=== PATIENT | male | born 2000 | race African-American/Black ===

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

== ENCOUNTER 2020-04-13 16:16 | Emergency (ER) | payer BC, SELFPAY ==
--- NOTE | ~2020-04-13 | XR_ITS ---
EXAMINATION: XR knee RT 3V EXAM DATE: 04/13/2020 16:37 INDICATION: RT knee pain. 4x months, no injury. Pain around patella. TECHNIQUE: Three projections of the right knee. There is no prior study for comparison. FINDINGS: No evidence osteochondral defect or joint body in the right knee joint. There are no acut e fractures or dislocations identified. There is no subcutaneous gas. The soft tissue is unremarkab le. There are no radiopaque foreign bodies. No joint effusion. IMPRESSION: 1. Unremarkable XR knee RT 3V exam. Reviewed, dictated and finalized at location A. ST
--- NOTE | 2020-04-13 16:22 | ED.GENADULT ---
HPI - General Adult General Chief complaint: Extremity Injury, Lower Stated complaint: Right Knee Pain Time Seen by Provider: 04/13/20 16:22 Source: patient Mode of arrival: ambulatory Limitations: no limitations History of Present Illness HPI narrative: 19-year-old male patient presents to the [facility] with complaints of right knee pain for the past 2 to 3 months. 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 Patient states that he noticed some pain during some leg work-up out a couple months ago. Patient states he has stopped doing leg workouts for couple of week now but continues to have some popping and clicking of the right knee especially when extending the right knee and going up and down stairs. Patient denies taking thing for pain. Patient states he has worn his knee brace that he has at home intermittently for the pain at times. Patient denies any numbness or tingling down the leg. Patient denies any swelling, warmth or redness to the knee. Related Data Allergies Allergy/AdvReac Type Severity Reaction Status Date / Time No Known Allergies Allergy Verified 10/04/19 17:19 Review of Systems Review of Systems: Narrative: CONSTITUTIONAL: Denies fever, chills, or sweats. EYES: Denies visual changes, redness, or discharge. ENT: Denies rhinorrhea, congestion, sore throat, or otalgia. CARDIOVASCULAR: Denies chest pain, palpitations, or edema. RESPIRATORY: Denies cough or dyspnea. GASTROINTESTINAL: Denies abdominal pain, nausea, vomiting, or diarrhea. GENITOURINARY: Denies dysuria or hematuria. SKIN: Denies rash or itching. MUSCULOSKELETAL: Denies back pain, joint pain, or myalgia. Positive right knee pain NEUROLOGIC: Denies headache, numbness, or weakness. PSYCHIATRIC: Denies anxiety or depression. [facility] Past Medical History Medical History (Updated 04/13/20 @ 17:08 by GARTH Howell) ADHD Surgical History Surgical History (Updated 04/13/20 @ 17:08 by GARTH Howell) H/O knee surgery History of orthopedic surgery Bilateral thumbs Comments At the time of my signature I agree with nursing past medical history, surgical, social, and family history. There is no relevant family history pertinent to the presenting complaint. Exam Narrative: Exam Narrative: GENERAL: Well-appearing, well-nourished, and in no acute distress. HEAD: Normocephalic, atraumatic. EYES: PERRLA and EOMI. ENT: Nares clear, no rhinorrhea or epistaxis. Mucous membranes moist. NECK: Supple. No lymphadenopathy CHEST: Clear to auscultation. No respiratory distress. HEART: Regular rate and rhythm. No murmur heard. Normal peripheral pulses. ABDOMEN: Soft, nontender, nondistended, normal active bowel sounds. EXTREMITIES: Patient is able to bear weight and ambulate without pain. No surface trauma, STS, or obvious effusion. No overlying erythema or warmth. The L knee is without obvious asymmetry or deformity when compared to the R knee. Patient is able to do deep knee bend with symmetry, fully extend knee but patient does have popping and feels that the patella is not stable with this motion, normal internal and external rotation. No tendernss to palpation of the patella, no effusion or ballottement. No tenderness over the infrapatellar tendon. No tenderness over the medial or lateral joint lone ot the medial or lateral tibial plateaus. no tenderness over the proximal fibular head. no tenderness, fullness, or mass of the popliteal fossa. No quadriceps tenderness. No laxity of the ACL, PCL, MCL, or LCL. No collateral ligament laxity to valgus or vargus stress. Negative ney/drawer sign. Negative Kaylee. Negative Apley compression and/or distraction. Distal motor and neurovascular status intact. SKIN: Warm, dry, no rash. NEURO: No focal deficits. Alert and oriented x3. Course Reevaluation(s) Reevaluation #1: Reevaluated patient a
[2020-04-13 16:37] VITALS: BP 144/67; PULSE 63; RESP 18; TEMP 36.4; O2SAT 99
== END 2020-04-13 17:00 | disposition home or self-care (01) ==
PROVIDERS: Emergency Provider Nurse Practitioner Family
DX: M23.91 Unspecified internal derangement of right knee (principal)
CPT/HCPCS: 73562; 99213; G0463

== ENCOUNTER 2020-06-21 10:54 | Emergency (ER) | payer BC, SELFPAY ==
[2020-06-21 11:00] VITALS: BP 122/92; PULSE 71; RESP 16; TEMP 37.1; O2SAT 98
--- NOTE | 2020-06-21 11:06 | ED.GENADULT ---
HPI - General Adult General Chief complaint: Upper Respiratory Infection Stated complaint: sore throat Time Seen by Provider: 06/21/20 11:06 Source: patient Mode of arrival: ambulatory Limitations: no limitations History of Present Illness HPI narrative: 19-year-old male patient presents to the [facility] with complaints of sore throat for the past 4 days. Patient states is also had a little bit of congestion for the past couple of days as well as some ear pain. Denies take anything for his symptoms besides ibuprofen. Patient denies any fever, body aches or chills. Denies any cough, chest pain or shortness of breath. Denies any abdominal pain, nausea, vomiting or diarrhea. Patient denies being around anybody with Covid that he is aware of. Related Data Allergies Allergy/AdvReac Type Severity Reaction Status Date / Time No Known Allergies Allergy Verified 10/04/19 17:19 Review of Systems Review of Systems: Narrative: CONSTITUTIONAL: Denies fever, chills, or sweats. EYES: Denies visual changes, redness, or discharge. ENT: Denies rhinorrhea, positive congestion, positive sore throat, positive bilateral otalgia. CARDIOVASCULAR: Denies chest pain, palpitations, or edema. RESPIRATORY: Denies cough or dyspnea. GASTROINTESTINAL: Denies abdominal pain, nausea, vomiting, or diarrhea. GENITOURINARY: Denies dysuria or hematuria. SKIN: Denies rash or itching. MUSCULOSKELETAL: Denies back pain, joint pain, or myalgia. NEUROLOGIC: Denies headache, numbness, or weakness. PSYCHIATRIC: Denies anxiety or depression. PMFSH Past Medical History Medical History (Updated 06/21/20 @ 11:27 by GARTH Howell) ADHD Surgical History Surgical History (Updated 04/13/20 @ 17:08 by GARTH Howell) H/O knee surgery History of orthopedic surgery Bilateral thumbs Social History Social History Gender identity (if verbalized by the patient): Male Exam Narrative: Exam Narrative: GENERAL: Well-appearing, well-nourished, and in no acute distress. HEAD: Normocephalic, atraumatic. EYES: PERRLA and EOMI. ENT: Nares with erythema and edema noted bilaterally, no rhinorrhea or epistaxis. Mucous membranes moist. Posterior pharynx with no erythema, tonsil enlargement, exudates or lesions present. Bilateral TMs are slightly erythemic but no foreign bodies to the canal. NECK: Supple. No lymphadenopathy CHEST: Clear to auscultation. No respiratory distress. Patient able talk clear complete sentences. No tripoding noted. HEART: Regular rate and rhythm. No murmur heard. Normal peripheral pulses. ABDOMEN: Soft, nontender, nondistended, normal active bowel sounds. EXTREMITIES: Normal range of motion. No edema. SKIN: Warm, dry, no rash. NEURO: No focal deficits. Alert and oriented x3. Course Reevaluation(s) Reevaluation #1: Reevaluated patient and notified him that his strep and Covid test are both negative today. Discussed with him that we will send the strep test off to the lab for culture and if it does come back positive in the next couple of days we will call him and place him on antibiotics at that time. Discussed with patient we did do a rapid Covid test which was negative today however given his symptoms we will also do a PCR test and send it to the lab for confirmation. Discussed with patient that I do encourage him to stay off of work and isolate while we are waiting for the PCR test. Discussed with patient I will discharge him home with an antihistamine and a nasal steroid to help with his symptoms he can also do ibuprofen, Tylenol, warm salt water gargles and cough drops to help with the symptoms. Patient verbalized understanding denies any other questions or concerns at this time. Date: 06/21/20 Time: 11:32 Vital Signs Vital signs: Vital Signs Temperature 37.1 C 06/21/20 11:00 Pulse Rate 71 06/21/20 11:00 Respiratory Rate 16 06/21/20 11:00 Blood Pressure 122/92
--- NOTE | 2020-06-21 11:09 | ED.GENADULT ---
HPI - General Adult General Chief complaint: Upper Respiratory Infection Stated complaint: sore throat Time Seen by Provider: 06/21/20 11:06 Source: patient Mode of arrival: ambulatory Limitations: no limitations Related Data Allergies Allergy/AdvReac Type Severity Reaction Status Date / Time No Known Allergies Allergy Verified 10/04/19 17:19 [facility] Past Medical History Medical History (Updated 04/14/20 @ 00:00 by Frank New) ADHD Surgical History Surgical History (Updated 04/13/20 @ 17:08 by GARTH Howell) H/O knee surgery History of orthopedic surgery Bilateral thumbs Course Vital Signs Vital signs: Vital Signs Temperature 37.1 C 06/21/20 11:00 Pulse Rate 71 06/21/20 11:00 Respiratory Rate 16 06/21/20 11:00 Blood Pressure 122/92 H 06/21/20 11:00 Pulse Oximetry 98 06/21/20 11:00 Temperature 37.1 C 06/21/20 11:00 Pulse Rate 71 06/21/20 11:00 Respiratory Rate 16 06/21/20 11:00 Blood Pressure 122/92 H 06/21/20 11:00 Pulse Oximetry 98 06/21/20 11:00 Medical Decision Making Vital Signs Vital Signs: Vital Signs Temperature 37.1 C 06/21/20 11:00 Pulse Rate 71 06/21/20 11:00 Respiratory Rate 16 06/21/20 11:00 Blood Pressure 122/92 H 06/21/20 11:00 Pulse Oximetry 98 06/21/20 11:00 Temperature 37.1 C 06/21/20 11:00 Pulse Rate 71 06/21/20 11:00 Respiratory Rate 16 06/21/20 11:00 Blood Pressure 122/92 H 06/21/20 11:00 Pulse Oximetry 98 06/21/20 11:00 Discharge Plan Discharge Prescriptions: No Action naproxen 500 mg tablet 500 mg PO BID PRN (Reason: pain) Qty: 30 RF: 0 cyclobenzaprine 10 mg tablet 10 mg PO TID PRN (Reason: muscle spasm) Qty: 10 RF: 0
[2020-06-22 20:38] LABS: SARS-CoV-2 RNA PCR Negative
== END 2020-06-21 11:45 | disposition home or self-care (01) ==
PROVIDERS: Emergency Provider Nurse Practitioner Family
DX: J06.9 Acute upper respiratory infection, unspecified (principal); J02.9 Acute pharyngitis, unspecified; Z20.822 Contact with and (suspected) exposure to COVID-19
CPT/HCPCS: 87081; 87426; 87880; 99213; C9803; G0463; U0003; U0005

== ENCOUNTER 2021-03-29 16:31 | Emergency (ER) | payer BC, SELFPAY ==
--- NOTE | 2021-03-29 16:39 | ED_ITS ---
HPI - Female Genitourinary General Chief complaint: Urogenital-Male Stated complaint: STD Time Seen by Provider: 03/29/21 16:39 Source: patient, RN notes reviewed and old records reviewed Mode of arrival: ambulatory Limitations: no limitations History of Present Illness HPI Narrative: 20-year-old male presents to the [facility] with complaints of urinary pain and penile discharge for the last 3 weeks. Denies abdominal pain or chest pain. Related Data Allergies Allergy/AdvReac Type Severity Reaction Status Date / Time No Known Allergies Allergy Verified 06/21/20 15:32 [facility] Past Medical History Medical History (Updated 06/22/20 @ 00:00 by Frank New) ADHD Surgical History Surgical History (Updated 04/13/20 @ 17:08 by GARTH Howell) H/O knee surgery History of orthopedic surgery Bilateral thumbs Social History Social History Gender identity (if verbalized by the patient): Male Course Vital Signs Vital signs: Vital Signs Temperature 97.9 F 03/29/21 16:43 Pulse Rate 66 03/29/21 16:43 Respiratory Rate 16 03/29/21 16:43 Blood Pressure 132/69 03/29/21 16:43 Pulse Oximetry 100 03/29/21 16:43 Temperature 97.9 F 03/29/21 16:43 Pulse Rate 66 03/29/21 16:43 Respiratory Rate 16 03/29/21 16:43 Blood Pressure 132/69 03/29/21 16:43 Pulse Oximetry 100 03/29/21 16:43 Discharge Plan Discharge Follow-up/Referrals: PHYSICIAN NOT ON STAFF,NONSTAFF [Primary Care Provider] -
[2021-03-29 16:43] VITALS: BP 132/69; PULSE 66; RESP 16; TEMP 36.6; O2SAT 100
--- NOTE | 2021-03-29 16:51 | ED.MALEGU ---
HPI - Male Genitourinary General Chief complaint: Urogenital-Male Stated complaint: STD Time Seen by Provider: 03/29/21 16:39 Source: patient and RN notes reviewed Mode of arrival: ambulatory Limitations: no limitations History of Present Illness HPI Narrative: 20-year-old male presents to the [facility] with complaints of burning with urination and penile discharge for the last 2 to 3 weeks. Denies testicular pain. Has had unprotected sex Related Data Allergies Allergy/AdvReac Type Severity Reaction Status Date / Time No Known Allergies Allergy Verified 06/21/20 15:32 Review of Systems Review of Systems: All systems reviewed & are unremarkable except as noted in HPI and below Constitutional: Constitutional: Reports no additional constitutional complaints, Denies body ache(s) and Denies chills Eyes: Eyes: Reports no additional eye complaints ENT: Reports system reviewed and no additional complaints, except as documented Cardiovascular: Cardiovascular: Reports no additional cardiovascular complaints Respiratory: Respiratory: Reports no additional respiratory complaints Gastrointestinal: Gastrointestinal: Reports no additional gastrointestinal complaints and Denies abdominal pain Genitourinary: Genitourinary: Reports as per HPI, Reports genital pain, Reports dysuria, Reports penile discharge, Denies scrotal swelling, Denies testicular pain, Denies urinary frequency, Denies urinary incontinence and Denies urinary urgency Musculoskeletal: Musculoskeletal: Reports no additional musculoskeletal complaints Integumentary/Breasts: Skin/Breast: Reports system reviewed and no additional complaints, except as docu Neurologic: Reports system reviewed and no additional complaints, except as documented Psychiatric: Psychiatric: Reports no additional psychiatric complaints Allergic/Immunologic: Allergic/Immunologic: Reports no additional allergic/immunologic complaints [facility] Past Medical History Medical History (Updated 03/29/21 @ 16:58 by Eve Penaloza) ADHD Surgical History Surgical History H/O knee surgery History of orthopedic surgery Bilateral thumbs Social History Social History Gender identity (if verbalized by the patient): Male Comments At the time of my signature, I reviewed and agree with the nursing past medical, surgical, social, and family history. There is no relevant family history pertinent to the patient complaint. Exam Const: General: cooperative, healthy appearing, comfortable, no acute distress, well developed, alert, awake and anxious Nutritional Appearance: average body habitus Orientation/consciousness: oriented to person Limitations: no limitations HENMT: Head: normal to inspection Face and sinus: normal facial exam Mouth: Yes Normal oral and palatal mucosa present Eyes: General: appearance normal, both eyes and all related structures Eyelids: eyelids normal Conjunctivae: conjunctivae normal EOM: EOMs intact bilaterally Neck: Neck: normal visual inspection, full ROM and no lymphadenopathy Chest: Chest palpation & inspection: normal inspection of the chest Resp: Effort & Inspection: normal respiratory effort and able to speak in complete sentences Auscultation: clear to auscultation bilaterally Cardio: Palpation: normal PMI Rate: regular rate : General: Yes bimanual renal exam normal bilaterally Male General Exam: Yes normal external exam and No erythema Penis: Yes normal penis and No Localized penile swelling present Meatus: meatus normal Scrotum: scrotum normal Testes: Testes normal Other: Chaperoned by Yousuf GUZMÁN Back/Spine/Pelvis: Back: no CVA tenderness Skin: General skin exam: normal color Lesions: no lesions Rashes: no rashes Trauma: no lacerations or abrasions Wounds: no wounds Neuro: General: patient oriented x3 Speech: normal speech Gait exam (Neuro): Normal
[2021-03-29] MEDS: cefTRIAXone 500 MG, LIDOCAINE HCL 1% LOCAL INJ 1 ML IM (18:00)
== END 2021-03-29 18:13 | disposition home or self-care (01) ==
PROVIDERS: Emergency Provider Nurse Practitioner
DX: R36.9 Urethral discharge, unspecified (principal); R30.0 Dysuria
CPT/HCPCS: 87491; 87591; 87661; 96372; 99213; G0463; J0696